=== PATIENT | male | born 1945 | race Two or more races ===

== ENCOUNTER 2020-03-19 15:00 | Outpatient (CLI) | payer OTHER | END 2020-03-19 15:05 | disposition home or self-care (01) | LOC: LAB 15:00 | PROVIDERS: ATTEND Radiology Diagnostic Radiology | DX: N20.0 Calculus of kidney (principal) ==

== ENCOUNTER 2020-03-20 09:50 | Outpatient (CLI) | payer OTHER | END 2020-03-20 09:59 | disposition home or self-care (01) | LOC: TOM 09:50 | PROVIDERS: ATTEND Colon & Rectal Surgery | DX: K57.92 Diverticulitis of intestine, part unspecified, without perforation or abscess without bleeding (principal) | CPT/HCPCS: 74177; Q9965 ==